=== PATIENT | male | born 1955 | race Caucasian/White ===

== ENCOUNTER 2017-06-14 08:31 | Inpatient (IN) | payer BC, OTHER ==
[~2017-06-14] VITALS: Ht 182.9 cm; Wt 88.5 kg
[~2017-06-14 08:31] MED LIST: AMLO10 PO; AMOX250 PO; Amlodipine-Ben1 EACH PO; CELE100 PO; HYDR1TAB94 PO; Stool Softener100 MG PO; TRAM50 PO; [UNRECOGNIZED DRUG - OTHER] PO
[2017-06-18 03:56] LABS: BASOPHILS ABSOLUTE AUTO 0.02 K/mm3 (0.00-0.23); BASOPHILS PERCENT AUTO 0 % (0-2); EOSINOPHILS PERCENT AUTO 2 % (0-6); Hematocrit 34.3 % (37.0-53.0); Hemoglobin 11.2 g/dL (13.5-17.5); IMMATURE GRAN ABSOLUTE AUTO 0.03 K/mm3 (0.00-0.10); IMMATURE GRAN PERCENT AUTO 1 % (0-1); LYMPHOCYTES ABSOLUTE AUTO 1.26 K/mm3 (0.84-5.20); LYMPHOCYTES PERCENT AUTO 21 % (21-46); MONOCYTES ABSOLUTE AUTO 0.54 K/mm3 (0.16-1.47); MONOCYTES PERCENT AUTO 9 % (4-13); Mean Corpuscular HGB 29.6 pg (26.0-34.0); Mean Corpuscular HGB Conc 32.7 g/dL (31.5-36.5); Mean Corpuscular Volume 91 fL (80-100); Mean Platelet Volume 9.6 fL (9.1-12.4); NEUTROPHILS PERCENT AUTO 68 % (41-73); Platelet Count 168 K/mm3 (150-400); RDW Standard Deviation 40.3 fL (35.1-46.3); Red Blood Cell Count 3.79 M/mm3 (4.30-5.90); White Blood Cell Count 6.05 K/mm3 (4.00-11.30)
[2017-06-18 04:10] LABS: Anion Gap 5 mmol/L (6-16); Blood Urea Nitrogen 12 mg/dL (8-24); CO2, Blood 30 mmol/L (21-32); Calcium, Blood 7.9 mg/dL (8.5-10.1); Chloride, Blood 106 mmol/L (98-108); Creatinine, Blood 0.75 mg/dL (0.60-1.20); Glomerular Filtration Rate >60 (60-); Glucose, Blood 112 mg/dL (70-99); Sodium, Blood 141 mmol/L (136-145)
[2017-06-18] MEDS ORDERED: ASPI325EC PO (09:21)
[2017-06-18] MEDS ORDERED: Percocet 5-3251 EACH PO (09:24)
== END 2017-06-18 14:56 | disposition home or self-care (01) | DRG 470 ==
LOC: SURS 06-17 08:55 → PRE IP 06-17 10:45 → SURS 06-17 14:36
PROVIDERS: Orthopaedic Surgery
PROC: 0SR904Z Replacement of Right Hip Joint with Ceramic on Polyethylene Synthetic Substitute, Open Approach (ICD-10-PCS; principal; 2017-06-17 10:45)
DX: M16.11 Unilateral primary osteoarthritis, right hip (principal); I10 Essential (primary) hypertension; Z79.899 Other long term (current) drug therapy
CPT/HCPCS: 36415; 72170; 80048; 85025; 86850; 86900; 86901; 88300; 97110; 97116; 97161; 97530; C1776; G8978; G8979; J0171; J0690; J0735; J1885; J2250; J2795; J3010; J7120

== ENCOUNTER 2017-07-07 13:02 | Inpatient (IN) | payer BC, OTHER ==
[~2017-07-07] VITALS: Ht 182.9 cm; Wt 95.2 kg
[~2017-07-07 13:02] MED LIST changes: +ASPI325EC PO; +Percocet 5-3251 EACH PO
[2017-08-03] MEDS ORDERED: CELE100 PO (09:46)
[2017-08-03] MEDS ORDERED: Lotrel 5-40 MG1 EACH PO (09:46)
[2017-08-11 04:10] LABS: BASOPHILS ABSOLUTE AUTO 0.02 K/mm3 (0.00-0.23); BASOPHILS PERCENT AUTO 0 % (0-2); EOSINOPHILS ABSOLUTE AUTO 0.18 K/mm3 (0.00-0.68); EOSINOPHILS PERCENT AUTO 3 % (0-6); Hematocrit 37.1 % (37.0-53.0); Hemoglobin 11.8 g/dL (13.5-17.5); IMMATURE GRAN ABSOLUTE AUTO 0.01 K/mm3 (0.00-0.10); IMMATURE GRAN PERCENT AUTO 0 % (0-1); LYMPHOCYTES ABSOLUTE AUTO 1.56 K/mm3 (0.84-5.20); LYMPHOCYTES PERCENT AUTO 27 % (21-46); MONOCYTES ABSOLUTE AUTO 0.46 K/mm3 (0.16-1.47); MONOCYTES PERCENT AUTO 8 % (4-13); Mean Corpuscular HGB 28.9 pg (26.0-34.0); Mean Corpuscular HGB Conc 31.8 g/dL (31.5-36.5); Mean Corpuscular Volume 91 fL (80-100); Mean Platelet Volume 10.2 fL (9.1-12.4); NEUTROPHILS ABSOLUTE AUTO 3.56 K/mm3 (1.96-9.15); NEUTROPHILS PERCENT AUTO 62 % (41-73); Platelet Count 167 K/mm3 (150-400); RDW Coefficient Variation 12.8 % (11.7-14.2); RDW Standard Deviation 42.5 fL (35.1-46.3); Red Blood Cell Count 4.08 M/mm3 (4.30-5.90); White Blood Cell Count 5.79 K/mm3 (4.00-11.30)
[2017-08-11 04:26] LABS: Anion Gap 4 mmol/L (6-16); Blood Urea Nitrogen 13 mg/dL (8-24); Bun/Creatinine Ratio 16.3 (12.0-20.0); CO2, Blood 29 mmol/L (21-32); Calcium, Blood 8.1 mg/dL (8.5-10.1); Chloride, Blood 105 mmol/L (98-108); Glomerular Filtration Rate >60 (60-); Glucose, Blood 104 mg/dL (70-99); Potassium, Blood 4.2 mmol/L (3.5-5.5); Sodium, Blood 138 mmol/L (136-145)
[2017-08-11] MEDS ORDERED: Percocet 5-3251 EACH PO (08:37)
[2017-08-11] MEDS ORDERED: ASPI325EC PO (08:38)
== END 2017-08-11 12:25 | disposition home or self-care (01) | DRG 470 ==
LOC: SURS 08-10 06:04 → PRE IP 08-10 07:30 → SURS 08-10 11:14
PROVIDERS: Orthopaedic Surgery
PROC: 0SRB04Z Replacement of Left Hip Joint with Ceramic on Polyethylene Synthetic Substitute, Open Approach (ICD-10-PCS; principal; 2017-08-10 07:30)
DX: M87.052 Idiopathic aseptic necrosis of left femur (principal); I10 Essential (primary) hypertension
CPT/HCPCS: 36415; 72170; 80048; 85025; 86850; 86900; 86901; 88300; 97116; 97161; 97530; C1776; G8978; G8979; J0171; J0690; J0735; J1885; J2250; J2795; J3010; J7120

== ENCOUNTER → 2017-07-26 | Outpatient (CLI) | payer BC, OTHER ==
[~2017-07-26] MED LIST changes: +Lotrel 5-40 MG1 EACH PO
== END | disposition home or self-care (01) ==
LOC: LAB SHORT 11:26 → PLD 11:26
DX: D22.5 Melanocytic nevi of trunk (principal)
CPT/HCPCS: 88305